=== PATIENT | female | born 1965 | race African-American/Black ===

== ENCOUNTER 2016-08-27 07:44 | Outpatient (CLI) | payer OTHER ==
[2016-08-27 08:05] LABS: #Basophils 0.1 thou/uL (0.0-0.2); #Eosinphils 0.2 thou/uL (0.0-0.7); #Lymphocytes 2.6 thou/uL (1.20-3.40); #Monocytes 0.4 thou/uL (0.11-0.59); #Neutrophils 2.8 thou/uL (1.40-6.50); %Basophils 1.5 % (0.0-1.0); %Eosinophils 3.4 % (0.0-10.0); %Lymphocytes 43.2 % (21.0-51.0); %Monocytes 6.5 % (0.0-10.0); %Neutrophils 45.3 % (42.0-75.0); Hemoglobin 14.9 g/dL (12.0-16.0); Mean Corpuscular HGB CONC 31.5 g/dL (32.0-36.0); Mean Corpuscular Hemoglobin 26.5 pg (27.0-31.0); Mean Corpuscular Volume 84.2 fl (81.0-99.0); Mean Platelet Volume 6.3 fL (7.4-10.4); Platelet Count 217 thou/uL (130-400); RBC Distribution Width 13.6 % (11.5-14.5); Red Blood Cell (RBC) Count 5.62 mill/uL (4.20-5.40); White Blood Cell (WBC) Count 6.1 thou/uL (4.8-10.8)
[2016-08-27 08:16] LABS: Hemoglobin A1c 5.4 % (4.0-6.0)
[2016-08-27 08:18] LABS: ALT (SGPT) 16 U/L (0-55); AST (SGOT) 16 U/L (5-34); Albumin 3.9 g/dL (3.5-5.0); Alkaline Phosphatase 82 U/L (40-150); Anion Gap 14 mmol/L (10-20); BUN (Urea Nitrogen) 15 mg/dL (9.8-20.1); Bilirubin, Total 0.4 mg/dL (0.2-1.2); Calc. Creatinine Clearance 0 mL/min (70-130); Calcium 9.2 mg/dL (7.8-10.44); Carbon Dioxide 22 mmol/L (22-29); Cardiac Risk 4.2 (Less than 4.5); Chloride 108 mmol/L (98-107); Cholesterol 152 mg/dL (< 200 Desired); Estimated GFR-MDRD 85; Globulin 3.1 g/dL (2.4-3.5); Glucose 88 mg/dL (70-105); HDL Cholesterol 36 mg/dL (>60 Neg Risk); LDL Cholesterol, Calculated 96 mg/dL; Potassium 4.2 mmol/L (3.5-5.1); Sodium 140 mmol/L (136-145); Triglycerides 100 mg/dL (Less than 150)
[2016-08-27 09:03] LABS: Thyroid Stimulating Hormone 0.7087 uIU/mL (0.35-4.94); Vitamin D, 25 Hydroxy 13.3 ng/mL (> 30.0)
== END 2016-08-27 07:45 ==
LOC: MADLABBHPM 07:44
PROVIDERS: ATTEND Family Medicine
DX: Z01.419 Encounter for gynecological examination (general) (routine) without abnormal findings (principal)
CPT/HCPCS: 36415; 80053; 80061; 82306; 83036; 84443; 85025

== ENCOUNTER 2016-09-10 09:34 | Emergency (ER) | payer OTHER ==
--- NOTE | 2016-09-10 10:32 | RAD ---
SINGLE VIEW OF THE CHEST: Comparison: 11-18-15 History: Syncope. FINDINGS: Single view of the chest shows a normal sized cardiomediastinal silhouette. There is no evidence of consolidation, mass, or pleural effusion. The bones are unremarkable. IMPRESSION: No evidence of acute cardiopulmonary disease. POS: [facility]
[2016-09-10 10:37] LABS: Eosinophils 1 % (0-10); Lymphocytes 46 % (21-51); MDiff Complete? YES; Mean Corpuscular HGB CONC 31.8 g/dL (32.0-36.0); Mean Corpuscular Hemoglobin 26.9 pg (27.0-31.0); Mean Corpuscular Volume 84.5 fl (81.0-99.0); Mean Platelet Volume 6.2 fL (7.4-10.4); Monocytes 9 % (0-10); Neutrophil 44 % (42-75); Platelet Count 205 thou/uL (130-400); RBC Distribution Width 13.2 % (11.5-14.5); Red Blood Cell (RBC) Count 5.19 mill/uL (4.20-5.40); White Blood Cell (WBC) Count 5.6 thou/uL (4.8-10.8)
[2016-09-10 10:42] LABS: ALT (SGPT) 14 U/L (0-55); AST (SGOT) 16 U/L (5-34); Albumin 3.8 g/dL (3.5-5.0); Alkaline Phosphatase 81 U/L (40-150); Anion Gap 12 mmol/L (10-20); BUN (Urea Nitrogen) 15 mg/dL (9.8-20.1); Bilirubin, Total 0.3 mg/dL (0.2-1.2); Calc. Creatinine Clearance 0 mL/min (70-130); Calcium 8.7 mg/dL (7.8-10.44); Carbon Dioxide 23 mmol/L (22-29); Chloride 110 mmol/L (98-107); Estimated GFR-MDRD Greater than 90; Globulin 2.5 g/dL (2.4-3.5); Glucose 80 mg/dL (70-105); Magnesium 1.9 mg/dL (1.6-2.6); Phosphorus 3.6 mg/dL (2.3-4.7); Potassium 4.3 mmol/L (3.5-5.1); Protein, Total 6.3 g/dL (6.0-8.3); Sodium 141 mmol/L (136-145)
[2016-09-10 10:43] LABS: CKMB 2.7 ng/mL (0-6.6); Troponin I 0.011 ng/mL (< 0.028)
[2016-09-10 10:59] LABS: Thyroid Stimulating Hormone 0.4483 uIU/mL (0.35-4.94)
--- NOTE | 2016-09-10 11:19 | CT ---
BRAIN CT WITHOUT IV CONTRAST: History: 51-year-old female with syncope. FINDINGS: No focal mass or midline shift. No intra or extraaxial hemorrhage. Sinuses and mastoids are clear. There is a focal area of irregularity of the right medial and orbital wall, evidence for a probabl e old or remote blow out type fracture. IMPRESSION: No acute intracranial process. No mass or bleed. Old right medial orbital wall fracture. Some mil d generalized sclerosis/opacification of the right mastoid compared to the left. POS: [facility]
--- NOTE | 2016-09-10 11:32 | CT ---
CT CERVICAL SPINE WITH CORONAL AND SAGITTAL REFORMATIONS: HISTORY: Syncope. FINDINGS/IMPRESSION: Comparison is made with the exam of 12/26/15. No fracture or subluxation is seen. Minimal degenerative change is present. POS: [facility]
[2016-09-10 13:19] LABS: Bilirubin Negative (Negative); Blood, Urine Trace (Negative); Clarity Clear (Clear); Glucose, Urine (Dipstick) Negative (Negative); Leukocyte Negative (Negative); Nitrite Negative (Negative); Protein, Urine (Dipstick) Negative (Neg-Trace); Specific Gravity, Urine 1.015 (1.005-1.030); Urobilinogen 0.2 mg/dL (0.2-1.0); pH, Urine 6.5 (5.0-9.0)
[2016-09-10 13:24] LABS: Bacteria/HPF None Seen HPF (None Seen); RBC/HPF 0-3 HPF (0-3); Squamous Epithelial 0-3 HPF (0-3); WBC/HPF None Seen HPF (0-3)
[2016-09-10 13:25] LABS: Amphetamine Not Detected (NotDetected); Barbiturates Screen Not Detected (NotDetected); Benzodiazepine Screen Not Detected (NotDetected); Cocaine Metabolite Screen Not Detected (NotDetected); Medtox Control Line Valid? VALID (VALID); Methadone Not Detected (NotDetected); Methamphetamine Not Detected (NotDetected); Opiate Screen Not Detected (NotDetected); Oxycodone Screen Not Detected (NotDetected); Phencyclidine (PCP) Not Detected (NotDetected); THC/Cannabinoid Screen Not Detected (NotDetected); Tricyclic Screen Not Detected (NotDetected)
== END 2016-09-10 12:56 | disposition short-term general hospital (02) ==
LOC: MADERS 09:34
DX: E16.2 Hypoglycemia, unspecified (principal); R55 Syncope and collapse; K21.9 Gastro-esophageal reflux disease without esophagitis; F17.210 Nicotine dependence, cigarettes, uncomplicated
CPT/HCPCS: 36416; 70450; 71010; 72125; 80053; 80306; 81003; 81015; 82553; 83735; 83880; 84100; 84436; 84443; 84484; 85025; 85379; 93005

== ENCOUNTER 2017-01-08 15:39 | Emergency (ER) | payer OTHER ==
[2017-01-08] MEDS ORDERED: traMADol HCl 50 MG TAB ONE (16:28)
== END 2017-01-08 16:35 | disposition home or self-care (01) ==
LOC: MADERS 15:39
DX: S39.012A Strain of muscle, fascia and tendon of lower back, initial encounter (principal); K21.9 Gastro-esophageal reflux disease without esophagitis; F17.210 Nicotine dependence, cigarettes, uncomplicated; Z79.899 Other long term (current) drug therapy; X50.0XXA Overexertion from strenuous movement or load, initial encounter; Y92.69 Other specified industrial and construction area as the place of occurrence of the external cause; Y99.0 Civilian activity done for income or pay
CPT/HCPCS: 99283

== ENCOUNTER 2017-08-10 09:13 | Emergency (ER) | payer OTHER ==
[~2017-08-10 09:13] MED LIST: Sodium Chloride 0.9% 1,000 ML BAG ONE
[2017-08-10] MEDS ORDERED: Naproxen 500 MG TAB ONE ×2 (09:40→09:43)
[2017-08-10] MEDS ORDERED: HYDROcodone/Acetaminophen 10/325 mg Tablet ONE ×2 (09:40→09:43)
[2017-08-10 09:53] LABS: #Basophils 0.1 thou/uL (0.0-0.2); #Eosinphils 0.1 thou/uL (0.0-0.7); #Lymphocytes 2.4 thou/uL (1.20-3.40); #Monocytes 0.5 thou/uL (0.11-0.59); #Neutrophils 2.5 thou/uL (1.40-6.50); %Basophils 2.5 % (0.0-1.0); %Eosinophils 2.5 % (0.0-10.0); %Lymphocytes 42.4 % (21.0-51.0); %Monocytes 8.4 % (0.0-10.0); %Neutrophils 44.2 % (42.0-75.0); Mean Corpuscular Hemoglobin 26.8 pg (27.0-31.0); Mean Corpuscular Volume 86.6 fl (81.0-99.0); Mean Platelet Volume 6.2 fL (7.4-10.4); Platelet Count 196 thou/uL (130-400); Red Blood Cell (RBC) Count 4.86 mill/uL (4.20-5.40); White Blood Cell (WBC) Count 5.6 thou/uL (4.8-10.8)
[2017-08-10 10:07] LABS: ALT (SGPT) 16 U/L (8-55); AST (SGOT) 15 U/L (5-34); Albumin 3.2 g/dL (3.5-5.0); Alkaline Phosphatase 68 U/L (40-150); Anion Gap 11 mmol/L (10-20); BUN (Urea Nitrogen) 14 mg/dL (9.8-20.1); Bilirubin, Total 0.2 mg/dL (0.2-1.2); Calc. Creatinine Clearance 0 mL/min (70-130); Calcium 8.3 mg/dL (7.8-10.44); Carbon Dioxide 24 mmol/L (22-29); Chloride 111 mmol/L (98-107); Estimated GFR-MDRD Greater than 90; Glucose 70 mg/dL (70-105); Potassium 4.1 mmol/L (3.5-5.1); Protein, Total 6.2 g/dL (6.0-8.3); Sodium 142 mmol/L (136-145)
[2017-08-10 10:07] LABS: Bilirubin Negative (Negative); Blood, Urine Trace (Negative); Clarity Clear (Clear); Glucose, Urine (Dipstick) Negative (Negative); Leukocyte Negative (Negative); Nitrite Negative (Negative); Protein, Urine (Dipstick) Negative (Neg-Trace); Specific Gravity, Urine 1.025 (1.005-1.030); pH, Urine 5.5 (5.0-9.0)
[2017-08-10 10:09] LABS: CKMB 1.8 ng/mL (0-6.6); Troponin I Less than 0.010 ng/mL (< 0.028)
[2017-08-10 10:16] LABS: Bacteria/HPF 1+ HPF (None Seen); WBC/HPF 0-3 HPF (0-3)
== END 2017-08-10 11:15 | disposition home or self-care (01) ==
LOC: MADERS 09:13
DX: E16.2 Hypoglycemia, unspecified (principal); I10 Essential (primary) hypertension; K21.9 Gastro-esophageal reflux disease without esophagitis; F17.210 Nicotine dependence, cigarettes, uncomplicated; Z79.899 Other long term (current) drug therapy
CPT/HCPCS: 36415; 36416; 80053; 81001; 82553; 84484; 85025; 87086; 93005; 96361; 96374; J1610; J7050

== ENCOUNTER 2017-09-08 21:37 | Emergency (ER) | payer OTHER ==
[2017-09-08] MEDS ORDERED: Benzonatate 100 MG CAP ONE (22:02)
[2017-09-08] MEDS ORDERED: Azithromycin 250 MG TAB ONE (22:48)
--- NOTE | 2017-09-08 23:01 | RAD ---
TWO VIEW CHEST: History: Cough, fever. FINDINGS: Lungs appear clear of infiltrate. Possibly some mild atelectasis in the left lung base. No effusion. Heart and mediastinum unremarkable. IMPRESSION: No evidence of focal infiltrate. Possibly some mild linear atelectasis in the left lung. POS: [facility]
== END 2017-09-08 22:55 | disposition home or self-care (01) ==
LOC: MADERS 21:37
DX: J20.9 Acute bronchitis, unspecified (principal); I10 Essential (primary) hypertension; K21.9 Gastro-esophageal reflux disease without esophagitis; F17.210 Nicotine dependence, cigarettes, uncomplicated; Z79.899 Other long term (current) drug therapy
CPT/HCPCS: 36416; 71046; 94640; J7620

== ENCOUNTER 2017-10-08 06:26 | Emergency (ER) | payer OTHER ==
[2017-10-08 07:25] LABS: %Basophils 1.4 % (0.0-1.0); %Eosinophils 2.4 % (0.0-10.0); %Lymphocytes 41.2 % (21.0-51.0); %Monocytes 8.8 % (0.0-10.0); %Neutrophils 46.3 % (42.0-75.0); Hemoglobin 15.2 g/dL (12.0-16.0); Mean Corpuscular HGB CONC 32.2 g/dL (32.0-36.0); Mean Corpuscular Hemoglobin 26.9 pg (27.0-31.0); Mean Corpuscular Volume 83.5 fl (81.0-99.0); Mean Platelet Volume 6.5 fL (7.4-10.4); Platelet Count 227 thou/uL (130-400); RBC Distribution Width 13.3 % (11.5-14.5); White Blood Cell (WBC) Count 6.1 thou/uL (4.8-10.8)
[2017-10-08 07:37] LABS: ALT (SGPT) 19 U/L (8-55); AST (SGOT) 18 U/L (5-34); Alkaline Phosphatase 75 U/L (40-150); Anion Gap 13 mmol/L (10-20); BUN (Urea Nitrogen) 16 mg/dL (9.8-20.1); Bilirubin, Total 0.7 mg/dL (0.2-1.2); Calc. Creatinine Clearance 0 mL/min (70-130); Calcium 9.3 mg/dL (7.8-10.44); Carbon Dioxide 23 mmol/L (22-29); Chloride 110 mmol/L (98-107); Estimated GFR-MDRD 85; Globulin 3.5 g/dL (2.4-3.5); Glucose 101 mg/dL (70-105); Magnesium 1.9 mg/dL (1.6-2.6); Potassium 4.3 mmol/L (3.5-5.1); Protein, Total 7.5 g/dL (6.0-8.3); Sodium 142 mmol/L (136-145)
--- NOTE | 2017-10-08 07:38 | RAD ---
CHEST: Date: 10/08/17 COMPARISON: 09/08/17. HISTORY: Dyspnea. FINDINGS: Two views of the chest show normal sized cardiomediastinal silhouette. There is no evidence of consol idation, mass, or pleural effusion. The bones are unremarkable. IMPRESSION: No evidence of acute cardiopulmonary disease. POS: [facility]
[2017-10-08 07:45] LABS: CKMB 1.5 ng/mL (0-6.6); Troponin I Less than 0.010 ng/mL (< 0.028)
[2017-10-08 08:14] LABS: Lactic Acid 0.7 mmol/L (0.5-2.2)
[2017-10-08] MEDS ORDERED: Lorazepam 2 MG/ML VIAL ONE (08:27)
--- NOTE | 2017-10-08 08:58 | CT ---
CT OF THE BRAIN WITHOUT CONTRAST: Date: 10/08/17 COMPARISON: 10/11/16. HISTORY: Loss of consciousness. Seizure this morning. TECHNIQUE: Multiple contiguous axial images were obtained in a CT of the brain without contrast. FINDINGS: The brain is normal in morphology and attenuation without focal lesions or confluent areas of infarct ion. There is no evidence of hydrocephalus, intracranial hemorrhage, or extra-axial fluid collection. The calvarium and overlying soft tissues are unremarkable. The visualized paranasal sinuses and masto id air cells are well aerated. There appears to be dehiscence of the right medial orbital wall, uncha nged. IMPRESSION: No evidence of acute intracranial abnormality. POS: [facility]
== END 2017-10-08 09:06 | disposition short-term general hospital (02) ==
LOC: MADERS 06:26
DX: G40.909 Epilepsy, unspecified, not intractable, without status epilepticus (principal); I10 Essential (primary) hypertension; K21.9 Gastro-esophageal reflux disease without esophagitis; F17.210 Nicotine dependence, cigarettes, uncomplicated
CPT/HCPCS: 36416; 70450; 71046; 80053; 82553; 83605; 83735; 83880; 84146; 84443; 84484; 85025; 93005; 96374; J2060

== ENCOUNTER 2017-12-28 12:40 | Emergency (ER) | payer OTHER ==
[2017-12-28] MEDS ORDERED: diphenhydrAMINE 25 MG CAP ONE (13:03)
[2017-12-28] MEDS ORDERED: Promethazine HCl 25 MG/ML VIAL ONE (13:03)
[2017-12-28] MEDS ORDERED: HYDROcodone/Acetaminophen 5/325 mg Tablet ONE (13:04)
[2017-12-28] MEDS ORDERED: Dexamethasone 4 MG TAB ONE (13:04)
[2017-12-28 13:20] LABS: #Basophils 0.1 thou/uL (0.0-0.2); #Eosinphils 0.2 thou/uL (0.0-0.7); #Lymphocytes 2.7 thou/uL (1.20-3.40); #Monocytes 0.3 thou/uL (0.11-0.59); #Neutrophils 2.5 thou/uL (1.40-6.50); %Basophils 1.1 % (0.0-1.0); %Eosinophils 2.7 % (0.0-10.0); %Neutrophils 43.2 % (42.0-75.0); Hemoglobin 13.6 g/dL (12.0-16.0); Mean Corpuscular HGB CONC 31.1 g/dL (32.0-36.0); Mean Corpuscular Hemoglobin 25.4 pg (27.0-31.0); Mean Corpuscular Volume 81.7 fL (78.0-98.0); Platelet Count 197 thou/uL (130-400); RBC Distribution Width 13.4 % (11.5-14.5); Red Blood Cell (RBC) Count 5.34 mill/uL (4.20-5.40); White Blood Cell (WBC) Count 5.7 thou/uL (4.8-10.8)
[2017-12-28 13:24] LABS: MDiff Complete? YES; Manual Diff?? NO
[2017-12-28 13:33] LABS: Anion Gap 15 mmol/L (10-20); BUN (Urea Nitrogen) 18 mg/dL (9.8-20.1); Calc. Creatinine Clearance 0 mL/min (70-130); Calcium 8.9 mg/dL (7.8-10.44); Carbon Dioxide 25 mmol/L (22-29); Chloride 106 mmol/L (98-107); Estimated GFR-MDRD 75; Glucose 153 mg/dL (70-105); Potassium 3.8 mmol/L (3.5-5.1); Sodium 142 mmol/L (136-145)
== END 2017-12-28 13:59 | disposition home or self-care (01) ==
LOC: MADERS 12:40
DX: G43.909 Migraine, unspecified, not intractable, without status migrainosus (principal); I10 Essential (primary) hypertension; K21.9 Gastro-esophageal reflux disease without esophagitis; F17.210 Nicotine dependence, cigarettes, uncomplicated; Z79.899 Other long term (current) drug therapy
CPT/HCPCS: 36415; 80048; 83880; 85025; 96372; J2550; J8540

== ENCOUNTER 2018-02-09 12:24 | Emergency (ER) | payer OTHER ==
[2018-02-09 13:02] LABS: Bilirubin Negative (Negative); Blood, Urine Trace (Negative); Clarity Slightly Cloudy (Clear); Glucose, Urine (Dipstick) Negative (Negative); Leukocyte Negative (Negative); Nitrite Negative (Negative); Protein, Urine (Dipstick) Negative (Neg-Trace); pH, Urine 5.5 (5.0-9.0)
[2018-02-09 13:03] LABS: Specific Gravity, Urine 1.031 (1.002-1.036); Squamous Epithelial 21-50 HPF (0-3)
[2018-02-09 13:04] LABS: Bacteria/HPF Rare-Few HPF (None Seen); Yeast-All Forms 1+ HPF (None Seen)
[2018-02-09 13:18] LABS: Hemoglobin 13.3 g/dL (12.0-16.0); Lymphocytes 50 % (21-51); MDiff Complete? YES; Mean Corpuscular HGB CONC 31.5 g/dL (32.0-36.0); Mean Corpuscular Hemoglobin 25.8 pg (27.0-31.0); Mean Corpuscular Volume 81.7 fL (78.0-98.0); Mean Platelet Volume 5.9 fL (7.4-10.4); Monocytes 5 % (0-10); Neutrophil 46 % (42-75); PLT Morphology Comment Appears Adequate; Platelet Count 194 thou/uL (130-400); RBC Distribution Width 13.2 % (11.5-14.5); Red Blood Cell (RBC) Count 5.17 mill/uL (4.20-5.40); White Blood Cell (WBC) Count 5.4 thou/uL (4.8-10.8)
[2018-02-09 13:25] LABS: Anion Gap 14 mmol/L (10-20); BUN (Urea Nitrogen) 17 mg/dL (9.8-20.1); Calc. Creatinine Clearance 0 mL/min (70-130); Calcium 8.4 mg/dL (7.8-10.44); Carbon Dioxide 20 mmol/L (22-29); Chloride 111 mmol/L (98-107); Estimated GFR-MDRD Greater than 90; Glucose 139 mg/dL (70-105); Sodium 141 mmol/L (136-145)
[2018-02-09 13:42] LABS: Potassium 4.4 mmol/L (3.5-5.1)
== END 2018-02-09 13:25 | disposition home or self-care (01) ==
LOC: MADERS 12:24
DX: E16.2 Hypoglycemia, unspecified (principal); I10 Essential (primary) hypertension; K21.9 Gastro-esophageal reflux disease without esophagitis; F17.210 Nicotine dependence, cigarettes, uncomplicated; Z79.899 Other long term (current) drug therapy
CPT/HCPCS: 80048; 81003; 81015; 85025; 99285

== ENCOUNTER 2018-09-13 14:17 | Emergency (ER) | payer OTHER ==
[2018-09-13] MEDS ORDERED: predniSONE 20 MG TAB ONE (14:43)
--- NOTE | 2018-09-13 15:05 | RAD ---
CHEST 2 VIEWS: Date: 09/13/18 HISTORY: Cough. COMPARISON: 10/08/17. FINDINGS: Heart size is within normal limits. No confluent pneumonia, overt edema, or pleural effusion. IMPRESSION: No significant acute intrathoracic disease. Atherosclerosis of aorta. POS: [facility]
== END 2018-09-13 15:25 | disposition home or self-care (01) ==
LOC: MADERS 14:17
DX: J20.9 Acute bronchitis, unspecified (principal)
CPT/HCPCS: 71046; 94640; 99282; J7620

== ENCOUNTER 2019-08-08 02:56 | Emergency (ER) | payer SELFPAY ==
[2019-08-08] MEDS ORDERED: Phenergan/Codeine 10-6.25mg/5ml UDCUP ONE (03:16)
[2019-08-08] MEDS ORDERED: cefTRIAXone\\ROCEPHIN 1 GM VIAL ONE (03:34)
[2019-08-08] MEDS ORDERED: Lidocaine 2% 20 ml MDV ONE (03:34)
[2019-08-08] MEDS ORDERED: Benzonatate 100 MG CAP ONE (04:01)
--- NOTE | 2019-08-08 09:49 | RAD ---
PORTABLE CHEST: HISTORY: Cough. COMPARISON: 09/10/2016 FINDINGS: Heart size and mediastinum are within normal limits. There is some atherosclerotic change of the aort a. Lungs appear clear of infiltrates. Overlying soft tissues obscure some detail in the lung bases. IMPRESSION: No active intrathoracic disease. POS: [facility]
== END 2019-08-08 04:10 | disposition home or self-care (01) ==
LOC: MADERS 02:56
DX: J44.1 Chronic obstructive pulmonary disease with (acute) exacerbation (principal); K02.9 Dental caries, unspecified; F17.210 Nicotine dependence, cigarettes, uncomplicated
CPT/HCPCS: 71045; 96372; J0696; J1040; J2001; J7620

== ENCOUNTER 2020-06-18 15:07 | Emergency (ER) | payer BC, OTHER ==
--- NOTE | 2020-06-18 15:46 | RAD ---
XR Chest Pa Lat STANDARD History: Cough Comparison: Radiograph July 2019 Findings: Lungs are clear. No pneumothorax or effusion. Cardiac silhouette and mediastinal contours a re within normal limits. No acute osseous abnormality. Impression: No acute intrathoracic abnormality.
== END 2020-06-18 15:55 | disposition home or self-care (01) ==
LOC: MADERS 15:07
DX: J02.9 Acute pharyngitis, unspecified (principal); R05 Cough; F17.210 Nicotine dependence, cigarettes, uncomplicated
CPT/HCPCS: 71046

== ENCOUNTER 2020-11-19 16:00 | Emergency (ER) | payer BC | END 2020-11-19 16:40 | disposition home or self-care (01) | LOC: MADERS 16:00 | DX: H60.91 Unspecified otitis externa, right ear (principal); F17.210 Nicotine dependence, cigarettes, uncomplicated | CPT/HCPCS: 99282 ==

== ENCOUNTER 2020-11-19 19:55 | Emergency (ER) | payer BC | END 2020-11-19 20:44 | disposition home or self-care (01) | LOC: MADERS 19:55 | DX: H60.90 Unspecified otitis externa, unspecified ear (principal); F17.210 Nicotine dependence, cigarettes, uncomplicated ==

== ENCOUNTER 2021-06-25 19:25 | Emergency (ER) | payer BC ==
[2021-06-26] MEDS ORDERED: Ketorolac Tromethamine 30 MG/ML VIAL ONE (00:21)
[2021-06-26] MEDS ORDERED: Benzonatate 100 MG CAP ONE (01:00)
== END 2021-06-26 01:03 | disposition home or self-care (01) ==
LOC: MADERS 19:25
DX: B34.9 Viral infection, unspecified (principal); F17.210 Nicotine dependence, cigarettes, uncomplicated
CPT/HCPCS: 71046; 87804; 96372; J1885; J7620

== ENCOUNTER 2022-08-26 01:16 | Emergency (ER) | payer BC, SELFPAY ==
[2022-08-26 01:53] LABS: #Basophils 0.1 thou/uL (0.0-0.2); #Eosinphils 0.1 thou/uL (0.0-0.7); #Lymphocytes 1.9 thou/uL (1.20-3.40); #Monocytes 0.4 thou/uL (0.11-0.59); #Neutrophils 2.9 thou/uL (1.40-6.50); %Basophils 1.3 % (0.0-1.0); %Eosinophils 2.7 % (0.0-10.0); %Lymphocytes 34.9 % (21.0-51.0); %Monocytes 7.6 % (0.0-10.0); %Neutrophils 53.5 % (42.0-75.0); Hemoglobin 15.3 g/dL (12.0-16.0); Mean Corpuscular HGB CONC 31.2 g/dL (32.0-36.0); Mean Corpuscular Hemoglobin 25.4 pg (27.0-31.0); Mean Corpuscular Volume 81.4 fl (78.0-98.0); Mean Platelet Volume 6.5 fL (7.4-10.4); Platelet Count 269 10x3/uL (130-400); RBC Distribution Width 12.7 % (11.5-14.5); Red Blood Cell (RBC) Count 6.01 mill/uL (4.20-5.40); White Blood Cell (WBC) Count 5.3 10x3/uL (4.8-10.8)
[2022-08-26 02:13] LABS: ALT (SGPT) 15 U/L (8-55); AST (SGOT) 13 U/L (5-34); Albumin 3.8 g/dL (3.5-5.0); Alkaline Phosphatase 81 U/L (40-110); Anion Gap 14 mmol/L (10-20); BUN (Urea Nitrogen) 11 mg/dL (9.8-20.1); Bilirubin, Total 0.3 mg/dL (0.2-1.2); Calc. Creatinine Clearance 0 mL/min (70-130); Calcium 9.1 mg/dL (7.8-10.44); Carbon Dioxide 23 mmol/L (22-29); Chloride 108 mmol/L (98-107); Estimated GFR 69; Globulin 3.6 g/dL (2.4-3.5); Glucose 93 mg/dL (70-105); Potassium 4.2 mmol/L (3.5-5.1); Protein, Total 7.4 g/dL (6.0-8.3); Sodium 141 mmol/L (136-145)
[2022-08-26] MEDS ORDERED: Doxycycline 100 MG CAP ONE (02:13)
[2022-08-26] MEDS ORDERED: predniSONE 20 MG TAB ONE (02:13)
[2022-08-26] MEDS ORDERED: Ipratropium/Albuterol 3 ML NEB ONE (02:13)
== END 2022-08-26 02:44 | disposition home or self-care (01) ==
LOC: MADERS 01:16
DX: J45.901 Unspecified asthma with (acute) exacerbation (principal); F17.210 Nicotine dependence, cigarettes, uncomplicated
CPT/HCPCS: 36415; 71045; 80053; 83880; 84484; 85025; 85379; 93005; J7512; J7620

== ENCOUNTER 2022-08-29 20:26 | Emergency (ER) | payer BC, SELFPAY ==
[2022-08-29] MEDS ORDERED: Ipratropium/Albuterol 3 ML NEB ONE (21:56)
[2022-08-29 22:00] LABS: #Basophils 0.1 thou/uL (0.0-0.2); #Lymphocytes 1.5 thou/uL (1.20-3.40); #Monocytes 0.2 thou/uL (0.11-0.59); #Neutrophils 4.4 thou/uL (1.40-6.50); %Basophils 0.9 % (0.0-1.0); %Eosinophils 0.1 % (0.0-10.0); %Lymphocytes 24.2 % (21.0-51.0); %Monocytes 3.2 % (0.0-10.0); %Neutrophils 71.7 % (42.0-75.0); Hemoglobin 15.5 g/dL (12.0-16.0); Mean Corpuscular HGB CONC 31.7 g/dL (32.0-36.0); Mean Corpuscular Hemoglobin 25.8 pg (27.0-31.0); Mean Corpuscular Volume 81.2 fl (78.0-98.0); Mean Platelet Volume 5.8 fL (7.4-10.4); Platelet Count 253 10x3/uL (130-400); RBC Distribution Width 12.7 % (11.5-14.5); Red Blood Cell (RBC) Count 6.01 mill/uL (4.20-5.40); White Blood Cell (WBC) Count 6.1 10x3/uL (4.8-10.8)
[2022-08-29 22:21] LABS: ALT (SGPT) 70 U/L (8-55); AST (SGOT) 53 U/L (5-34); Albumin 3.7 g/dL (3.5-5.0); Alkaline Phosphatase 93 U/L (40-110); Anion Gap 14 mmol/L (10-20); BUN (Urea Nitrogen) 20 mg/dL (9.8-20.1); Bilirubin, Total 0.2 mg/dL (0.2-1.2); Calc. Creatinine Clearance 0 mL/min (70-130); Calcium 8.8 mg/dL (7.8-10.44); Carbon Dioxide 20 mmol/L (22-29); Chloride 103 mmol/L (98-107); Estimated GFR 50; Globulin 3.5 g/dL (2.4-3.5); Glucose 359 mg/dL (70-105); Potassium 4.5 mmol/L (3.5-5.1); Protein, Total 7.2 g/dL (6.0-8.3); Sodium 132 mmol/L (136-145)
[2022-08-29] MEDS ORDERED: Benzonatate 100 MG CAP ONE (23:14)
[2022-08-29] MEDS ORDERED: Acetaminophen 500 MG TAB ONE (23:14)
[2022-08-29] MEDS ORDERED: Morphine 4 MG/ML VIAL ONE (23:18)
[2022-08-29] MEDS ORDERED: Morphine 2 MG/ML VIAL ONE (23:19)
== END 2022-08-29 23:35 | disposition home or self-care (01) ==
LOC: MADERS 20:26
DX: U07.1 COVID-19 (principal); J44.9 Chronic obstructive pulmonary disease, unspecified; F17.200 Nicotine dependence, unspecified, uncomplicated
CPT/HCPCS: 71045; 80053; 83880; 84484; 85025; 93005; 96372; J2270; J2272; J7620

== ENCOUNTER 2022-09-14 19:58 | Emergency (ER) | payer BC ==
[2022-09-14] MEDS ORDERED: Ketorolac Tromethamine 30 MG/ML VIAL ONE (20:31)
[2022-09-14] MEDS ORDERED: Sodium Chloride 0.9% 1,000 ML ONE (20:31)
[2022-09-14] MEDS ORDERED: Ondansetron PF 4 MG/2 ML Vial ONE (20:31)
[2022-09-14] MEDS ORDERED: diphenhydrAMINE 50 MG/ML VIAL ONE (20:31)
[2022-09-14 20:34] LABS: #Basophils 0.1 thou/uL (0.0-0.2); #Eosinphils 0.1 thou/uL (0.0-0.7); #Lymphocytes 3.2 thou/uL (1.20-3.40); #Monocytes 0.5 thou/uL (0.11-0.59); #Neutrophils 2.9 thou/uL (1.40-6.50); %Basophils 1.2 % (0.0-1.0); %Eosinophils 1.9 % (0.0-10.0); %Lymphocytes 46.9 % (21.0-51.0); %Neutrophils 42.9 % (42.0-75.0); Hemoglobin 14.8 g/dL (12.0-16.0); Mean Corpuscular HGB CONC 32.3 g/dL (32.0-36.0); Mean Corpuscular Volume 80.4 fl (78.0-98.0); Mean Platelet Volume 6.3 fL (7.4-10.4); Platelet Count 244 10x3/uL (130-400); RBC Distribution Width 12.8 % (11.5-14.5); Red Blood Cell (RBC) Count 5.69 mill/uL (4.20-5.40); White Blood Cell (WBC) Count 6.8 10x3/uL (4.8-10.8)
[2022-09-14 20:58] LABS: ALT (SGPT) 19 U/L (8-55); AST (SGOT) 16 U/L (5-34); Albumin 3.7 g/dL (3.5-5.0); Alkaline Phosphatase 98 U/L (40-110); Anion Gap 12 mmol/L (10-20); BUN (Urea Nitrogen) 15 mg/dL (9.8-20.1); Bilirubin, Total 0.3 mg/dL (0.2-1.2); CK (CPK) 111 U/L (29-168); Calc. Creatinine Clearance 0 mL/min (70-130); Calcium 8.6 mg/dL (7.8-10.44); Carbon Dioxide 24 mmol/L (22-29); Chloride 106 mmol/L (98-107); Estimated GFR 56; Globulin 3.2 g/dL (2.4-3.5); Glucose 274 mg/dL (70-105); Magnesium 2.2 mg/dL (1.6-2.6); Potassium 4.2 mmol/L (3.5-5.1); Protein, Total 6.9 g/dL (6.0-8.3); Sodium 138 mmol/L (136-145)
== END 2022-09-14 22:09 | disposition home or self-care (01) ==
LOC: MADERS 19:58
DX: E86.0 Dehydration (principal); R51.9 Headache, unspecified; R73.9 Hyperglycemia, unspecified; R53.1 Weakness; F17.210 Nicotine dependence, cigarettes, uncomplicated
CPT/HCPCS: 70450; 71045; 80053; 82550; 83735; 83880; 84484; 85025; 93005; 96361; 96374; 96375; J1200; J1885; J2405; J7050

== ENCOUNTER 2023-01-06 17:19 | Emergency (ER) | payer BC ==
[~2023-01-06 17:19] MED LIST changes: +Iopamidol 370 76% 100 ML VIAL ONE; -Sodium Chloride 0.9% 1,000 ML BAG ONE
[2023-01-06] MEDS ORDERED: Nitroglycerin 0.4 MG TAB 1 EACH ONE (17:47)
[2023-01-06] MEDS ORDERED: Aspirin Chewable 81 MG TAB ONE (17:47)
[2023-01-06 18:17] LABS: #Basophils 0.1 thou/uL (0.0-0.2); #Eosinphils 0.1 thou/uL (0.0-0.7); #Monocytes 0.6 thou/uL (0.11-0.59); #Neutrophils 2.8 thou/uL (1.40-6.50); %Basophils 1.4 % (0.0-1.0); %Eosinophils 2.1 % (0.0-10.0); %Lymphocytes 44.4 % (21.0-51.0); %Monocytes 9.6 % (0.0-10.0); %Neutrophils 42.6 % (42.0-75.0); Hemoglobin 15.3 g/dL (12.0-16.0); Mean Corpuscular HGB CONC 30.6 g/dL (32.0-36.0); Mean Corpuscular Hemoglobin 25.9 pg (27.0-31.0); Mean Corpuscular Volume 84.5 fl (78.0-98.0); Mean Platelet Volume 7.4 fL (7.4-10.4); Platelet Count 218 10x3/uL (130-400); RBC Distribution Width 14.5 % (11.5-14.5); Red Blood Cell (RBC) Count 5.92 mill/uL (4.20-5.40); White Blood Cell (WBC) Count 6.7 10x3/uL (4.8-10.8)
[2023-01-06 18:24] LABS: PTT 28.6 sec (22.9-36.1); Prothrombin Time 13.4 sec (12.0-14.7)
[2023-01-06 18:27] LABS: D-Dimer Test 0.45 *mcg/mL (0.27-0.43)
[2023-01-06 18:47] LABS: ALT (SGPT) 19 U/L (8-55); AST (SGOT) 14 U/L (5-34); Alkaline Phosphatase 98 U/L (40-110); Anion Gap 14 mmol/L (10-20); BUN (Urea Nitrogen) 12 mg/dL (9.8-20.1); Bilirubin, Total 0.3 mg/dL (0.2-1.2); Calc. Creatinine Clearance 0 mL/min (70-130); Calcium 8.7 mg/dL (7.8-10.44); Carbon Dioxide 22 mmol/L (22-29); Chloride 107 mmol/L (98-107); Estimated GFR 65; Glucose 102 mg/dL (70-105); Lipase 61 U/L (8-78); Potassium 4.1 mmol/L (3.5-5.1); Sodium 139 mmol/L (136-145)
[2023-01-06] MEDS ORDERED: Morphine 4 MG/ML VIAL ONE ×2 (19:22→21:44)
[2023-01-06] MEDS ORDERED: Lactated Ringer's 1,000 ML ONE (19:22)
[2023-01-06] MEDS ORDERED: Lidocaine 4% Patch ONE (21:44)
[2023-01-06] MEDS ORDERED: Nitroglycerin 2% Ointment 1 INCH/1 GM Packet ONE (22:40)
[2023-01-06] MEDS ORDERED: Cyclobenzaprine 10 MG TAB ONE (22:40)
[2023-01-07 05:07] LABS: Troponin I Less than 0.010 ng/mL (< 0.028)
[2023-01-07] MEDS ORDERED: Acetaminophen 500 MG TAB ONE (07:48)
== END 2023-01-07 11:46 | disposition short-term general hospital (02) ==
LOC: MADERS 17:19
DX: R07.9 Chest pain, unspecified (principal); M25.512 Pain in left shoulder; E66.9 Obesity, unspecified; J44.9 Chronic obstructive pulmonary disease, unspecified; F17.210 Nicotine dependence, cigarettes, uncomplicated
CPT/HCPCS: 71046; 71275; 74174; 80053; 83690; 83880; 84484; 85025; 85379; 85610; 85730; 93005; 94760; 96361; 96374; 96376; J2270; J7120; Q9967

== ENCOUNTER 2023-01-24 21:55 | Emergency (ER) | payer BC ==
[2023-01-24] MEDS ORDERED: Triamcinolone 40 MG/ML VIAL ONE (22:41)
[2023-01-24] MEDS ORDERED: Methocarbamol 500 MG TAB ONE (22:41)
[2023-01-24] MEDS ORDERED: Ketorolac Tromethamine 60 MG/2 ML VIAL ONE (22:41)
== END 2023-01-24 23:30 | disposition home or self-care (01) ==
LOC: MADERS 21:55
DX: S46.012A Strain of muscle(s) and tendon(s) of the rotator cuff of left shoulder, initial encounter (principal); E78.5 Hyperlipidemia, unspecified; E66.9 Obesity, unspecified; J44.9 Chronic obstructive pulmonary disease, unspecified; I25.10 Atherosclerotic heart disease of native coronary artery without angina pectoris; F17.210 Nicotine dependence, cigarettes, uncomplicated; X50.0XXA Overexertion from strenuous movement or load, initial encounter; Z79.82 Long term (current) use of aspirin; Z79.899 Other long term (current) drug therapy
CPT/HCPCS: 96372; J1885; J3301

== ENCOUNTER 2023-02-20 08:49 | Emergency (ER) | payer BC ==
[2023-02-20 10:28] LABS: %Eosinophils 2.7 % (0.0-10.0); %Lymphocytes 46.4 % (21.0-51.0); %Monocytes 8.3 % (0.0-10.0); %Neutrophils 40.6 % (42.0-75.0); Hematocrit 49.8 % (36.0-47.0); Hemoglobin 15.4 g/dL (12.0-16.0); Mean Corpuscular HGB CONC 30.9 g/dL (32.0-36.0); Mean Corpuscular Volume 84.1 fl (78.0-98.0); Platelet Count 221 10x3/uL (130-400); RBC Distribution Width 14.7 % (11.5-14.5); Red Blood Cell (RBC) Count 5.92 mill/uL (4.20-5.40); White Blood Cell (WBC) Count 6.1 10x3/uL (4.8-10.8)
[2023-02-20 10:29] LABS: #Basophils 0.1 thou/uL (0.0-0.2); #Eosinphils 0.2 thou/uL (0.0-0.7); #Lymphocytes 2.8 thou/uL (1.20-3.40); #Monocytes 0.5 thou/uL (0.11-0.59); #Neutrophils 2.5 thou/uL (1.40-6.50)
[2023-02-20 10:36] LABS: ALT (SGPT) 21 U/L (8-55); AST (SGOT) 17 U/L (5-34); Albumin 3.8 g/dL (3.5-5.0); Alkaline Phosphatase 96 U/L (40-110); Anion Gap 13 mmol/L (10-20); BUN (Urea Nitrogen) 11 mg/dL (9.8-20.1); Bilirubin, Total 0.5 mg/dL (0.2-1.2); Calc. Creatinine Clearance 0 mL/min (70-130); Carbon Dioxide 23 mmol/L (22-29); Chloride 110 mmol/L (98-107); Estimated GFR 69; Globulin 3.5 g/dL (2.4-3.5); Glucose 66 mg/dL (70-105); Magnesium 1.9 mg/dL (1.6-2.6); Potassium 4.1 mmol/L (3.5-5.1); Protein, Total 7.3 g/dL (6.0-8.3)
[2023-02-20 10:41] LABS: Troponin I Less than 0.010 ng/mL (< 0.028)
[2023-02-20 10:45] LABS: Sodium 142 mmol/L (136-145)
== END 2023-02-20 11:20 | disposition home or self-care (01) ==
LOC: MADERS 08:49
DX: I10 Essential (primary) hypertension (principal); R94.31 Abnormal electrocardiogram [ECG] [EKG]; E78.5 Hyperlipidemia, unspecified; E66.9 Obesity, unspecified; J44.9 Chronic obstructive pulmonary disease, unspecified; I25.10 Atherosclerotic heart disease of native coronary artery without angina pectoris; F17.210 Nicotine dependence, cigarettes, uncomplicated; Z79.84 Long term (current) use of oral hypoglycemic drugs; Z79.899 Other long term (current) drug therapy
CPT/HCPCS: 36415; 36416; 71045; 80053; 83735; 84443; 84484; 85025; 93005; 94760

== ENCOUNTER 2023-07-08 10:12 | Emergency (ER) | payer BC, SELFPAY ==
[2023-07-08 11:00] LABS: Hemoglobin 15.5 g/dL (12.0-16.0); Mean Corpuscular HGB CONC 29.7 g/dL (32.0-36.0); Mean Corpuscular Hemoglobin 25.5 pg (27.0-31.0); Mean Corpuscular Volume 85.8 fl (78.0-98.0); Mean Platelet Volume 6.5 fL (7.4-10.4); Platelet Count 224 10x3/uL (130-400); Red Blood Cell (RBC) Count 6.06 mill/uL (4.20-5.40); White Blood Cell (WBC) Count 6.6 10x3/uL (4.8-10.8)
[2023-07-08 11:08] LABS: Lymphocytes 54 % (21-51); Manual Diff?? YES
[2023-07-08 11:09] LABS: Eosinophils 4 % (0-10); Monocytes 4 % (0-10)
[2023-07-08 11:10] LABS: Anisocytosis SLIGHT = 6-15 cells (100X) (0-5/hpf); Neutrophil 38 % (42-75); Platelet Adequacy Comment Appears Adequate
[2023-07-08 11:16] LABS: ALT (SGPT) 18 U/L (8-55); AST (SGOT) 17 U/L (5-34); Albumin 3.8 g/dL (3.5-5.0); Alkaline Phosphatase 86 U/L (40-110); Anion Gap 12 mmol/L (10-20); BUN (Urea Nitrogen) 10 mg/dL (9.8-20.1); Bilirubin, Total 0.4 mg/dL (0.2-1.2); Calc. Creatinine Clearance 0 mL/min (70-130); Calcium 8.7 mg/dL (7.8-10.44); Carbon Dioxide 23 mmol/L (22-29); Chloride 107 mmol/L (98-107); Estimated GFR 76; Globulin 3.6 g/dL (2.4-3.5); Glucose 89 mg/dL (70-105); Lipase 53 U/L (8-78); Magnesium 2.2 mg/dL (1.6-2.6); Potassium 4.2 mmol/L (3.5-5.1); Protein, Total 7.4 g/dL (6.0-8.3); Sodium 138 mmol/L (136-145)
[2023-07-08] MEDS ORDERED: Ketorolac Tromethamine 30 MG (1 mL) VIAL ONE (11:53)
[2023-07-08] MEDS ORDERED: Sodium Chloride 0.9% 500 ML ONE (11:53)
[2023-07-08] MEDS ORDERED: Ondansetron PF 4 MG/2 ML Vial ONE (11:53)
== END 2023-07-08 12:37 | disposition home or self-care (01) ==
LOC: MADERS 10:12
DX: K59.00 Constipation, unspecified (principal); E11.9 Type 2 diabetes mellitus without complications; E66.9 Obesity, unspecified; E78.5 Hyperlipidemia, unspecified; J44.9 Chronic obstructive pulmonary disease, unspecified; I25.10 Atherosclerotic heart disease of native coronary artery without angina pectoris; F17.210 Nicotine dependence, cigarettes, uncomplicated
CPT/HCPCS: 74177; 80053; 83690; 83735; 83880; 85025; 96374; 96375; J1885; J2405; J7030

== ENCOUNTER 2023-07-10 15:30 | Emergency (ER) | payer SELFPAY ==
[2023-07-10] MEDS ORDERED: Morphine 4 MG/ML VIAL ONE (16:17)
[2023-07-10] MEDS ORDERED: Sodium Chloride 0.9% 1,000 ML ONE (16:17)
[2023-07-10] MEDS ORDERED: Ondansetron PF 4 MG/2 ML Vial ONE (16:17)
[2023-07-10 16:28] LABS: #Basophils 0.1 thou/uL (0.0-0.2); #Eosinphils 0.1 thou/uL (0.0-0.7); #Lymphocytes 2.9 thou/uL (1.20-3.40); #Monocytes 0.5 thou/uL (0.11-0.59); #Neutrophils 2.2 thou/uL (1.40-6.50); %Basophils 1.7 % (0.0-1.0); %Eosinophils 2.1 % (0.0-10.0); %Lymphocytes 49.4 % (21.0-51.0); %Monocytes 8.5 % (0.0-10.0); %Neutrophils 38.4 % (42.0-75.0); Hematocrit 51.5 % (36.0-47.0); Hemoglobin 15.2 g/dL (12.0-16.0); Mean Corpuscular HGB CONC 29.5 g/dL (32.0-36.0); Mean Corpuscular Hemoglobin 25.3 pg (27.0-31.0); Mean Corpuscular Volume 85.8 fl (78.0-98.0); Mean Platelet Volume 7.4 fL (7.4-10.4); Platelet Count 253 10x3/uL (130-400); RBC Distribution Width 13.7 % (11.5-14.5); White Blood Cell (WBC) Count 5.8 10x3/uL (4.8-10.8)
[2023-07-10 16:36] LABS: Bilirubin Negative (Negative); Blood, Urine Moderate (Negative); Clarity Clear (Clear); Glucose, Urine (Dipstick) Negative (Negative); Ketone, Urine Negative (Negative); Leukocyte Negative (Negative); Nitrite Negative (Negative); Protein, Urine (Dipstick) Negative (Neg-Trace); Specific Gravity, Urine 1.025 (1.005-1.030); Urobilinogen 0.2 mg/dL (Less than 2); pH, Urine 6.5 (5.0-9.0)
[2023-07-10 16:37] LABS: ALT (SGPT) 18 U/L (8-55); AST (SGOT) 17 U/L (5-34); Albumin 3.7 g/dL (3.5-5.0); Alkaline Phosphatase 85 U/L (40-110); Anion Gap 14 mmol/L (10-20); BUN (Urea Nitrogen) 12 mg/dL (9.8-20.1); Bilirubin, Total 0.2 mg/dL (0.2-1.2); Calc. Creatinine Clearance 0 mL/min (70-130); Calcium 9.1 mg/dL (7.8-10.44); Carbon Dioxide 24 mmol/L (22-29); Chloride 107 mmol/L (98-107); Estimated GFR 70; Globulin 3.7 g/dL (2.4-3.5); Glucose 86 mg/dL (70-105); Lipase 57 U/L (8-78); Magnesium 2.3 mg/dL (1.6-2.6); Potassium 4.6 mmol/L (3.5-5.1); Protein, Total 7.4 g/dL (6.0-8.3); Sodium 140 mmol/L (136-145)
[2023-07-10 16:44] LABS: Bacteria/HPF Rare-Few HPF (None Seen); CAUTI Indications for Culture Pelvic or flank pain; Mucous/LPF 2+ LPF (<2+); Urine Culture Reflex No No
== END 2023-07-10 20:55 | disposition short-term general hospital (02) ==
LOC: MADERS 15:30
DX: R10.84 Generalized abdominal pain (principal); R11.0 Nausea; E11.9 Type 2 diabetes mellitus without complications; I10 Essential (primary) hypertension; E66.9 Obesity, unspecified; E78.5 Hyperlipidemia, unspecified; J44.9 Chronic obstructive pulmonary disease, unspecified; I25.10 Atherosclerotic heart disease of native coronary artery without angina pectoris; F17.210 Nicotine dependence, cigarettes, uncomplicated; Z79.84 Long term (current) use of oral hypoglycemic drugs; Z79.899 Other long term (current) drug therapy
CPT/HCPCS: 80053; 81001; 83690; 83735; 85025; 96374; 96375; J2270; J2405; J7050

== ENCOUNTER 2023-11-16 05:56 | Emergency (ER) | payer OTHER | END 2023-11-16 06:56 | disposition left against medical advice (07) | LOC: MADERS 05:56 | DX: G43.909 Migraine, unspecified, not intractable, without status migrainosus (principal); R29.700 NIHSS score 0; E11.9 Type 2 diabetes mellitus without complications; I10 Essential (primary) hypertension; I25.10 Atherosclerotic heart disease of native coronary artery without angina pectoris; J44.9 Chronic obstructive pulmonary disease, unspecified; F17.210 Nicotine dependence, cigarettes, uncomplicated; Z79.84 Long term (current) use of oral hypoglycemic drugs; Z79.899 Other long term (current) drug therapy | CPT/HCPCS: 99283 ==

== ENCOUNTER 2024-03-11 19:31 | Emergency (ER) | payer OTHER ==
[2024-03-11] MEDS ORDERED: Ketorolac Tromethamine 30 MG (1 mL) VIAL ONE (20:32)
[2024-03-11] MEDS ORDERED: Benzonatate 100 MG CAP ONE (21:10)
== END 2024-03-11 21:18 | disposition home or self-care (01) ==
LOC: MADERS 19:31
DX: U07.1 COVID-19 (principal); J44.9 Chronic obstructive pulmonary disease, unspecified; E11.9 Type 2 diabetes mellitus without complications; I10 Essential (primary) hypertension; F17.210 Nicotine dependence, cigarettes, uncomplicated; Z55.6 Problems related to health literacy
CPT/HCPCS: 71046; 96372; J1885

== ENCOUNTER 2024-06-02 13:08 | Emergency (ER) | payer OTHER | END 2024-06-02 13:50 | disposition home or self-care (01) | LOC: MADERS 13:08 | DX: H60.501 Unspecified acute noninfective otitis externa, right ear (principal); H73.91 Unspecified disorder of tympanic membrane, right ear; I10 Essential (primary) hypertension; E11.9 Type 2 diabetes mellitus without complications; F17.210 Nicotine dependence, cigarettes, uncomplicated | CPT/HCPCS: 99282 ==

== ENCOUNTER 2025-03-05 12:53 | Emergency (ER) | payer OTHER ==
[2025-03-05] MEDS ORDERED: Ondansetron PF 4 MG/2 ML Vial ONE (13:43)
[2025-03-05] MEDS ORDERED: Acetaminophen 325 MG TAB ONE (13:43)
[2025-03-05 13:55] LABS: Hematocrit 54.8 % (36.0-47.0); Hemoglobin 16.5 g/dL (12.0-16.0); Mean Corpuscular Hemoglobin 25.4 pg (27.0-31.0); Mean Corpuscular Volume 84.3 fl (78.0-98.0); Platelet Count 196 10x3/uL (130-400); Red Blood Cell (RBC) Count 6.50 mill/uL (4.20-5.40); White Blood Cell (WBC) Count 6.0 10x3/uL (4.8-10.8)
[2025-03-05 13:59] LABS: ALT (SGPT) 13 U/L (Less than 34); AST (SGOT) 19 U/L (11-34); Albumin 3.7 g/dL (3.1-4.5); Alkaline Phosphatase 81 U/L (40-110); Anion Gap 17 mmol/L (10-20); BUN (Urea Nitrogen) 15 mg/dL (9.8-20.1); Bilirubin, Total 0.7 mg/dL (0.3-1.2); Calc. Creatinine Clearance 0 mL/min (70-130); Calcium 8.7 mg/dL (7.8-10.44); Carbon Dioxide 20 mmol/L (22-29); Chloride 106 mmol/L (98-107); Globulin 4.1 g/dL (2.4-3.5); Glucose 81 mg/dL (70-105); Potassium 4.1 mmol/L (3.5-5.1); Sodium 139 mmol/L (136-145)
[2025-03-05 14:00] LABS: Troponin I Less than 0.010 ng/mL (< 0.028)
[2025-03-05 14:08] LABS: MDiff Complete? YES; Manual Diff?? YES
[2025-03-05 14:09] LABS: Platelet Adequacy Comment Appears Adequate
[2025-03-05 15:49] LABS: Glucose, Urine (Dipstick) Negative (Negative); Leukocyte Negative (Negative); Protein, Urine (Dipstick) 100 mg/dL (Neg-Trace); Specific Gravity, Urine Greater/Equal 1.030 (1.005-1.030)
[2025-03-05 16:00] LABS: CAUTI Indications for Culture Fever or rigors; WBC/HPF 0-3 HPF (0-3)
[2025-03-05 16:01] LABS: Bacteria/HPF Rare-Few HPF (None Seen); Mucous/LPF 2+ LPF (<2+); Urine Culture Reflex No No
== END 2025-03-05 16:41 | disposition home or self-care (01) ==
LOC: MADERS 12:53
DX: B34.9 Viral infection, unspecified (principal); E11.9 Type 2 diabetes mellitus without complications; I10 Essential (primary) hypertension; F17.210 Nicotine dependence, cigarettes, uncomplicated; E66.9 Obesity, unspecified; E78.5 Hyperlipidemia, unspecified; I25.10 Atherosclerotic heart disease of native coronary artery without angina pectoris; J44.9 Chronic obstructive pulmonary disease, unspecified; Z79.85 Long-term (current) use of injectable non-insulin antidiabetic drugs; Z79.899 Other long term (current) drug therapy
CPT/HCPCS: 71045; 80053; 81001; 83605; 84484; 85025; 93005; 96361; 96374; J2405; J7030; J7050

== ENCOUNTER 2025-03-06 16:15 | Emergency (ER) | payer OTHER ==
[2025-03-06] MEDS ORDERED: cefTRIAXone (ROCEPHIN) 1 GM VIAL ONE (16:49)
[2025-03-06] MEDS ORDERED: Ketorolac Tromethamine 30 MG (1 mL) VIAL ONE (16:49)
== END 2025-03-06 17:23 | disposition home or self-care (01) ==
LOC: MADERS 16:15
DX: H65.91 Unspecified nonsuppurative otitis media, right ear (principal); R11.2 Nausea with vomiting, unspecified; R19.7 Diarrhea, unspecified; I10 Essential (primary) hypertension; I25.10 Atherosclerotic heart disease of native coronary artery without angina pectoris; J44.9 Chronic obstructive pulmonary disease, unspecified; E78.5 Hyperlipidemia, unspecified; F17.210 Nicotine dependence, cigarettes, uncomplicated; Z79.899 Other long term (current) drug therapy
CPT/HCPCS: 96372; 99283; J0696; J1885; Q0162